=== PATIENT | female | born 1965 | race Caucasian/White ===

== ENCOUNTER 2018-01-31 10:27 | Emergency (ER) | payer OTHER ==
[~2018-01-31] VITALS: Ht 167.6 cm; Wt 84.4 kg
[2018-01-31 10:37] VITALS: Ht 167.6 cm; Wt 84.4 kg
[2018-01-31 14:00] VITALS: BP 148/81
== END 2018-01-31 14:00 | disposition home or self-care (01) ==
LOC: ED 10:27
DX: S40.011A Contusion of right shoulder, initial encounter (principal); S50.01XA Contusion of right elbow, initial encounter; S60.212A Contusion of left wrist, initial encounter; S60.211A Contusion of right wrist, initial encounter; I10 Essential (primary) hypertension; E11.9 Type 2 diabetes mellitus without complications; W18.2XXA Fall in (into) shower or empty bathtub, initial encounter; Y93.89 Activity, other specified; Y92.89 Other specified places as the place of occurrence of the external cause; Y99.8 Other external cause status
CPT/HCPCS: J1885

== ENCOUNTER 2019-09-17 16:20 | Emergency (ER) | payer OTHER ==
[~2019-09-17] VITALS: Ht 167.6 cm; Wt 71.7 kg
[2019-09-17 16:33] VITALS: Ht 167.6 cm; Wt 71.7 kg
[2019-09-17 18:12] VITALS: BP 149/71
== END 2019-09-17 18:12 | disposition home or self-care (01) ==
LOC: ED 16:20
DX: K08.89 Other specified disorders of teeth and supporting structures (principal); I10 Essential (primary) hypertension; E11.9 Type 2 diabetes mellitus without complications; F41.9 Anxiety disorder, unspecified; F32.9 Major depressive disorder, single episode, unspecified